=== PATIENT | female | born 1965 | race Caucasian/White ===

== ENCOUNTER 2018-03-05 21:37 | Emergency (ER) | payer BC, OTHER ==
[2018-03-05 22:00] VITALS: TEMP 99.7
[2018-03-05] MEDS ORDERED: KETOROLAC 30 MG/ML 1 ML VIAL IM STA (23:33)
--- NOTE | 2018-03-05 23:35 | XR ---
EXAMINATION TYPE: XR femur LT DATE OF EXAM: 03/05/2018 COMPARISON: NONE HISTORY: Femur pain TECHNIQUE: 4 views FINDINGS: There is narrowing of the hip joint space with spurring of the acetabulum and femoral head. The knee joint appears intact. I see no fracture nor dislocation. IMPRESSION: Retroverted osteoarthritis in the hip joint. No fracture seen.
[2018-03-06 00:07] VITALS: BP 146/76; PULSE 82; RESP 18
--- NOTE | 2018-03-06 00:12 | ED ---
General Adult HPI - General Chief complaint: Extremity Injury, Lower Stated complaint: L Thigh Pain Time Seen by Provider: 03/05/18 22:38 Source: patient, RN notes reviewed Mode of arrival: ambulatory Limitations: no limitations - History of Present Illness Initial comments: 52-year-old female presents to the emergency department for pain in the left hip x 1 day. Patient was stepping over a baby gait when she felt the pain in the left hip. Patient denies falling or hitting her head. Patient states it is painful to walk. She states it is a sharp pain in the back of her head and in her left groin. Patient states it feels like she pulled a muscle. Patient states ice makes it feel better. She tried a Tylenol 3 and Motrin with no relief. Patient has no other complaints at this time including shortness of breath, chest pain, abdominal pain, nausea or vomiting, headache, or visual changes. - Related Data Previous Rx's Medication Instructions Recorded HYDROcodone/APAP 5-325MG [Surfside 1 tab PO Q6HR PRN #10 tab 03/06/18 5-325] Ibuprofen [Motrin] 600 mg PO Q8HR PRN #20 tab 03/06/18 Allergies Allergy/AdvReac Type Severity Reaction Status Date / Time No Known Allergies Allergy Verified 03/05/18 22:00 Review of Systems ROS Statement: Those systems with pertinent positive or pertinent negative responses have been documented in the HPI. ROS Other: All systems not noted in ROS Statement are negative. Past Medical History Past Medical History: No Reported History History of Any Multi-Drug Resistant Organisms: None Reported Past Surgical History: Section Additional Past Surgical History / Comment(s): TENDON REPAIR RIGHT 5TH FINGER. Past Psychological History: No Psychological Hx Reported Smoking Status: Never smoker Past Alcohol Use History: Occasional Past Drug Use History: None Reported General Exam Limitations: no limitations General appearance: alert, in no apparent distress Neck exam: Present: normal inspection. Absent: tenderness, meningismus, lymphadenopathy Respiratory exam: Present: normal lung sounds bilaterally. Absent: respiratory distress, wheezes, rales, rhonchi, stridor Cardiovascular Exam: Present: regular rate, normal rhythm, normal heart sounds. Absent: systolic murmur, diastolic murmur, rubs, gallop, clicks Extremities exam: Present: normal capillary refill (Refill less than 2 seconds and pedal pulse 2+ in bilateral lower extremities), other (Sensation intact in the left lower extremity. Patient is able to walk on it but it is painful.). Absent: full ROM (Limited flexion of the left hip), tenderness (No tenderness to palpation of the left hip), pedal edema, joint swelling (No swelling or ecchymosis noted of the left hip) Back exam: Present: normal inspection. Absent: full ROM (Limited flexion due to the pain in her hip.), tenderness, paraspinal tenderness, vertebral tenderness Neurological exam: Present: alert, oriented X3 Course Vital Signs 03/05/18 03/06/18 21:56 00:06 Temperature 99.7 F H 99.7 F H Pulse Rate 84 82 Respiratory 16 18 Rate Blood Pressure 179/74 146/76 O2 Sat by Pulse 97 98 Oximetry Medical Decision Making - Medical Decision Making 52-year-old female presents to the emergency department for a chief complaint of left proximal leg and hip pain. Patient was stepping over a baby gait when she felt the pain. Patient states the physical pulled muscle. On exam patient has limited flexion of the left hip. No tenderness to palpation. Neurovascular intact in the left lower extremity. No tenderness or pain in the neck or back. X-ray of the left femur demonstrates no acute fractures or dislocations. Patient likely has a muscle strain. She was given Toradol in the emergency department which helped minimally. Patient tried Tylenol 3 at home which she had from a previous injury which did not help. She has tried Motrin once which did not help. She is to take Motrin for pain and to take Surfside if she has breakthrough pain. She was educated not to take any Tylenol with Surfside. Patient will be discharged home with a less than 3 days supply of Surfside. She will follow up with primary care in 1-2 days. Patient was given a note for work for the next 2 days. Disposition Clinical Impression: Hip pain Disposition: HOME SELF-CARE Condition: Good Instructions: Hip Pain (ED) Additional Instructions: Please take Motrin for pain relief. If pain is severe despite Motrin please take Surfside. Do not drive with taking Surfside. Return to the emergency department if symptoms worsen. Otherwise follow-up with primary care in 1-2 days. Prescriptions: HYDROcodone/APAP 5-325MG [Surfside 5-325] 1 tab PO Q6HR PRN #10 tab PRN Reason: Pain Ibuprofen [Motrin] 600 mg PO Q8HR PRN #20 tab PRN Reason: Pain Is patient prescribed a controlled substance at d/c from ED?: No Referrals: Deja Trujillo DO [Primary Care Provider] - 1-2 days Time of Disposition: 00:11
== END 2018-03-06 00:17 | disposition home or self-care (01) ==
LOC: EC 21:37
DX: M25.552 Pain in left hip (principal); R51 Headache; R10.32 Left lower quadrant pain; X50.9XXA Other and unspecified overexertion or strenuous movements or postures, initial encounter
CPT/HCPCS: 99283; 96372; 73552; J1885